=== PATIENT | female | born 1945 | race Caucasian/White ===

== ENCOUNTER 2016-02-13 13:22 | Inpatient (IN) ==
[2016-02-13] MEDS ORDERED: Ipratropium/Albuterol Neb 3 ML IH ONE (13:41)
--- NOTE | 2016-02-13 14:12 | Emergency Department Note ---
Disposition Clinical Impression: Hypoxia Asthma with exacerbation Qualifiers: Asthma severity: unspecified severity Qualified Code(s): J45.901 - Unspecified asthma with (acute) exacerbation Disposition: Admitted As Inpatient Condition: Fair Time of Disposition: 15:26 SOB HPI - General Chief Complaint: ED Shortness of Breath/Dyspnea Stated Complaint: cough/sob/taylor Source: patient Limitations: no limitations Nursing Notes Reviewed: Yes Vital Signs Reviewed: Yes - History of Present Illness Patient is a 70-year-old female who presents to [facility] ED with a chief complaint of difficulty breathing. States she has had cough and runny nose for the last 3 days. Past medical history significant for asthma for which she takes an inhaler. States she was wheezing quite a bit at home and decided to go to the urgent care to get checked out. They gave her a breathing treatment as well as Solu-Medrol while she was there. She was transferred here for further workup. On presentation to our emergency department, patient was saturating 88% on room air. She is not on any home oxygen. Pt Subjective Complaint: shortness of breath, cough Onset (ago): day(s) Context: recent illness Severity: moderate Consistency/Duration: gradually worsening Improves with: oxygen, rest Worsens with: exertion Known history of: asthma Associated symptoms: Reports: cough, wheezing. Denies: chest pain, fever Treatment prior to arrival: oxygen, bronchodilator Cough present: Yes Cough Description: Involuntary Cough Frequency: Intermittent Sputum production: No - Related Data Home oxygen amount: none Allergies Allergy/AdvReac Type Severity Reaction Status Date / Time Sulfa (Sulfonamide Allergy Mild Rash Verified 02/13/16 13:49 Antibiotics) All systems ED: reviewed and negative except as stated. Past Medical History - Past Medical History Attestation: Yes The following information was validated with the patient. Source: patient Medical history: Reports: asthma, cancer Psychiatric history: Reports: depression - Social History Smoking Status: Former smoker Alcohol use: Reports: heavy Drug use: Reports: none Physical Exam - General Limitations: no limitations General appearance: alert, in no apparent distress - Head Head exam: atraumatic, normocephalic, normal inspection - Eye Eye exam: Present: normal appearance, PERRL, EOMI - ENT ENT exam: normal exam, normal oropharynx, mucous membranes moist - Neck Neck exam: Present: normal inspection, full ROM, trachea midline - Chest Chest inspection: Present: normal inspection, symmetric chest wall rise - Respiratory Respiratory exam: Present: wheezes (LLB), other (decreased breath sounds bilaterally) - Cardiovascular Cardiovascular exam: Present: normal rhythm, tachycardia - Abdominal Exam Abdominal exam: Present: soft, Non-Tender. Absent: tenderness, distention, guarding, rebound, rigidity - Extremities Exam Extremities exam: Present: normal inspection, full ROM. Absent: tenderness, pedal edema - Back Exam Back exam: Present: normal inspection, full ROM. Absent: tenderness - Neurological Exam Neurological exam: Present: alert, oriented X3 - Psychiatric Psychiatric exam: Present: normal affect, normal mood - Skin Skin exam: Present: warm, dry, intact, normal color Course Course Narrative: Patient seen and examined. Difficulty breathing. Patient already is received 1 DuoNeb. We will order 2 more. She also received 125 mg of Solu-Medrol. Influenza testing was negative at urgent care. Patient oxygen saturation 88% on room air upon arrival. Cardiopulmonary workup initiated. - Reevaluation(s) Reevaluation #1: Lab work appears unremarkable. Lactic acid is slightly elevated at 2.3. Chest x-ray does not show any signs of pneumonia. Ambulatory test showed that patient dropped down to 84% on room air. We will admit to hospitalist for asthma exacerbation with hypoxia. I spoke with hospitalist Dr. Jeffrey who has accepted patient for admission. We will also order a CTA of the chest. I will pretreat with some IV fluids. Time: 15:18 Vital Signs Temperature 98.4 F 02/13/16 13:30 Pulse Rate 126 02/13/16 13:30 Respiratory Rate 18 02/13/16 13:30 Blood Pressure 127/76 02/13/16 13:30 O2 Sat by Pulse Oximetry 88 L 02/13/16 13:30 Temperature 98.4 F 02/13/16 13:30 Pulse Rate 131 02/13/16 15:14 Respiratory Rate 16 02/13/16 15:14 Blood Pressure 159/132 02/13/16 14:39 O2 Sat by Pulse Oximetry 98 02/13/16 15:14 Oxygen Delivery Oxygen Delivery Nasal Cannula Shortness of Breath/Dyspnea - Medical Records Medical records reviewed: Yes I reviewed the patient's medical records. - Lab Data Lab results reviewed: Yes I reviewed the patient's lab results. Result diagrams: 02/13/16 13:55 02/13/16 13:55 Lab Results 02/13/16 02/13/16 02/13/16 Range/Units 13:55 13:55 13:55 WBC 9.5 (4.3-11.1) K/mcL RBC 4.45 (3.82-4.97) M/mcL Hgb 14.1 (11.5-15.4) g/dL Hct 43.9 (35.3-44.9) % MCV 98.7 (83.0-100.0) fL MCH 31.7 (28.0-33.3) pg MCHC 32.1 (31.6-35.5) g/dL RDW 14.3 (11.5-14.5) % Plt Count 220 (140-400) K/mcL MPV 9.4 (9.4-12.4) fL Immature Gran % 0.2 (0-4) % Seg Neutrophils % 68.9 % Lymphocytes % 11.9 % Monocytes % 18.3 % Eosinophils % 0.3 % Basophils % 0.4 % Neutrophils # 6.6 (1.6-8.9) K/mcL Lymphocytes # 1.1 (0.6-4.6) K/mcL Monocytes # 1.7 H (0.0-1.3) K/mcL Eosinophils # 0.0 (0.0-0.6) K/mcL Basophils # 0.0 (0.0-0.2) K/mcL Reactive Lymphocytes Present A (Not Present) Platelet Estimate Normal (Normal) Sodium 139 (136-145) mEq/L Potassium 3.9 (3.5-4.5) mEq/L Chloride 102 (98-109) mEq/L Carbon Dioxide 23 (19-29) mEq/L BUN 9 (7-20) mg/dL Creatinine 0.73 (0.57-1.11) mg/dL Est GFR ( Amer) > 60 (> 60) Est GFR (Non-Af Amer) > 60 (> 60) BUN/Creatinine Ratio 12 (6-26) Glucose 140 H (70-99) mg/dL Calculated Osmolality 289 (280-300) Lactic Acid 2.3 H (0.5-2.2) mmol/L Calcium 9.4 (8.6-10.8) mg/dL Troponin I (0-0.03) ng/mL B-Natriuretic Peptide (0-100) pg/mL 02/13/16 02/13/16 Range/Units 13:55 13:55 WBC (4.3-11.1) K/mcL RBC (3.82-4.97) M/mcL Hgb (11.5-15.4) g/dL Hct (35.3-44.9) % MCV (83.0-100.0) fL MCH (28.0-33.3) pg MCHC (31.6-35.5) g/dL RDW (11.5-14.5) % Plt Count (140-400) K/mcL MPV (9.4-12.4) fL Immature Gran % (0-4) % Seg Neutrophils % % Lymphocytes % % Monocytes % % Eosinophils % % Basophils % % Neutrophils # (1.6-8.9) K/mcL Lymphocytes # (0.6-4.6) K/mcL Monocytes # (0.0-1.3) K/mcL Eosinophils # (0.0-0.6) K/mcL Basophils # (0.0-0.2) K/mcL Reactive Lymphocytes (Not Present) Platelet Estimate (Normal) Sodium (136-145) mEq/L Potassium (3.5-4.5) mEq/L Chloride (98-109) mEq/L Carbon Dioxide (19-29) mEq/L BUN (7-20) mg/dL Creatinine (0.57-1.11) mg/dL Est GFR ( Amer) (> 60) Est GFR (Non-Af Amer) (> 60) BUN/Creatinine Ratio (6-26) Glucose (70-99) mg/dL Calculated Osmolality (280-300) Lactic Acid (0.5-2.2) mmol/L Calcium (8.6-10.8) mg/dL Troponin I 0.01 (0-0.03) ng/mL B-Natriuretic Peptide 23 (0-100) pg/mL - Radiology Data Radiology results reviewed: Yes I reviewed the patient's radiology results. - EKG Data EKG attestation: Yes I reviewed and interpreted this EKG. EKG results narrative: EKG done at 1330 shows sinus tachycardia with a rate of 122 bpm. There is moderate ST depression in V3 through V6 and aVF. Attestation Statement - Attestation Attestation: Patient was seen with resident physician. I reviewed the history, physical, assessment and plan, and agree with the findings. I also personally evaluated this patient and had [id number] time with this patient. 70-year-old female who presents to the emergency department with worsening shortness of breath for last several weeks. Has a history of asthma and thinks this is probably an asthma exacerbation. She was seen in urgent care was given 2 breathing treatments but did not significantly improve and was hypoxic so she was sent to the emergency department for evaluation treatment. She also received steroid injection prior to her arrival. On examination patient is tachycardic heart is otherwise normal lungs are wheezing especially in the left side with decreased air movement. Abdomen is soft and nontender extremity is unremarkable. We will give additional breathing treatments and check a look for cardiac or pulmonary causes of her symptoms. She was hypoxic with a room air pulse ox of 88%. Unless this improves she will require hospitalization for oxygen therapy as she does not have home O2. After various breathing treatments were provided , with attempted ambulation patient oxygen level dropped to 84%. Case was discussed with the hospitalist. Although this is likely asthma related we will order a CT angiography of the chest just to rule out other causes of her shortness of breath and hypoxia. This will be obtained while in route to the floor and followed up on by the hospitalist physician. Agree with resident physician assessment and plan.
[2016-02-13 14:14] LABS: Basophils % 0.4 %; Eosinophils % 0.3 %; Hematocrit 43.9 % (35.3-44.9); Hemoglobin 14.1 g/dL (11.5-15.4); Immature Granulocytes % 0.2 % (0-4); Lymphocytes # 1.1 K/mcL (0.6-4.6); Lymphocytes % 11.9 %; Mean Corpuscular HGB Conc 32.1 g/dL (31.6-35.5); Mean Corpuscular Hemoglobin 31.7 pg (28.0-33.3); Mean Corpuscular Volume 98.7 fL (83.0-100.0); Mean Platelet Volume 9.4 fL (9.4-12.4); Monocytes # 1.7 K/mcL (0.0-1.3); Monocytes % 18.3 %; Platelet Count 220 K/mcL (140-400); Red Blood Count 4.45 M/mcL (3.82-4.97); Red Cell Distribution Width 14.3 % (11.5-14.5); Segmented Neutrophils % 68.9 %
[2016-02-13 14:23] LABS: Neutrophils # 6.6 K/mcL (1.6-8.9)
[2016-02-13 14:27] LABS: BUN/Creatinine Ratio 12 (6-26); Blood Urea Nitrogen 9 mg/dL (7-20); Calcium 9.4 mg/dL (8.6-10.8); Carbon Dioxide 23 mEq/L (19-29); Chloride 102 mEq/L (98-109); Glucose 140 mg/dL (70-99); Osmolality,Calculated 289 (280-300); Potassium 3.9 mEq/L (3.5-4.5); Sodium 139 mEq/L (136-145); eGFR For African Americans > 60 (> 60); eGFR For Non-African Americans > 60 (> 60)
[2016-02-13 14:45] LABS: Platelet Estimate Normal (Normal)
[2016-02-13 14:46] LABS: Reactive Lymphocytes Present (Not Present)
[2016-02-13] MEDS ORDERED: 0.9 % Sodium Chloride 1,000 ML IVC ONE (15:24)
[2016-02-13] MEDS ORDERED: Naloxone 0.4 MG/ML INJ IVP PRN (18:13)
[2016-02-13] MEDS ORDERED: Ondansetron 4 MG/2 ML VIAL IVP PRN (18:13)
[2016-02-13] MEDS ORDERED: Acetaminophen 325 MG TABLET PO PRN (18:13)
[2016-02-13] MEDS ORDERED: Albuterol 2.5 MG/3 ML NEBULIZER IH PRN (18:15)
--- NOTE | 2016-02-13 18:18 | Internal Med History&Physical ---
Date of Encounter: 02/13/16 Time of Encounter: 18:18 Assessment and Plan (1) Pneumonia Current visit: Yes Status: Acute Patient presents with cough, hypoxia and tachycardia. Chest CT shows right lower lobe infiltrate along with left upper lobe nodular densities, for which three-month follow-up is recommended as an outpatient. Start IV hydration and IV antibiotics for community-acquired pneumonia-Rocephin and azithromycin. When necessary supplemental oxygen. Qualifiers: Pneumonia type: due to unspecified organism Laterality: right Lung location: lower lobe of lung Qualified Code(s): J18.9 - Pneumonia, unspecified organism (2) Acute respiratory failure with hypoxia Current visit: Yes Status: Acute Likely related to underlying pneumonia and acute exacerbation of asthma. Continue supplemental oxygen along with scheduled bronchodilators and IV steroids. Patient will require home oxygen evaluation prior to discharge. (3) Sinus tachycardia Current visit: Yes Status: Acute Could be related to beta 2 agonist therapy and dehydration. Continue IV hydration and telemetry monitoring, trend troponins. Does not report any chest pain at this time. (4) Asthma with exacerbation Current visit: Yes Status: Acute Plan as above. Qualifiers: Asthma severity: mild intermittent Qualified Code(s): J45.21 - Mild intermittent asthma with (acute) exacerbation Internal Medicine - H&P: HPI Chief complaint: Shortness of breath Admitted From: Emergency Dept Plans for Post Hospital Care: Home History of present illness: Ms. Flores is a 70 year old female with history of asthma, presents with complaints of 5 day history of cough, congestion and shortness of breath. Patient was doing well until about 5-6 days back when she started having dry hacking cough associated with chest congestion, difficulty breathing, wheezing and chest tightness. No orthopnea, leg swelling, dizziness or syncope. She presented to urgent care yesterday and was discharged home on oral prednisone and azithromycin, however continued to have worsening symptoms and presented to the emergency room today. She is a nonsmoker and reports that her asthma is usually well controlled, no frequent flareups. Her symptoms are slightly improved currently with IV steroids and breathing treatments in the emergency room. Past Med Surg Social Fam HX - Past Medical History Medical history: asthma, cancer (Bladder cancer status post excision and BCG) Psychiatric history: anxiety, depression - Past Surgical History Surgical History: other (Right ankle ORIF, renal artery stent placement) - Social History Smoking Status: Former smoker Alcohol use: occasionally (2 glasses of wine per day), heavy Drug use: none Occupational status: retired Current living situation: Home - Independent Activity Level: Independent ambulation Recent Out of Country Travel Within the Last 8 Weeks: No Exposure or Possible Exposure to Illness During Travel: No - Family History Mother Hx Family Cardiac Disorders: Yes (CHF) Sister Hx Family Cancer: Yes (Breast cancer, lung cancer) Father Hx Family Cancer: Yes (Bladder cancer) Internal Medicine - H&P: Meds Aspirin [Lo-Dose Aspirin EC] 81 mg PO DAILY 02/13/16 [History] Budesonide/Formoterol 160/4.5 [Symbicort 160/4.5] 1 puff IH BIDR 02/13/16 [ History] Cyanocobalamin (Vitamin B-12) [Vitamin B-12] 5,000 mcg SL DAILY 02/13/16 [ History] Duloxetine [Cymbalta] 30 mg PO DAILY 02/13/16 [History] Gabapentin [Neurontin] 600 mg PO HS 02/13/16 [History] Multivit with Iron-Minerals [[employer]] 1 tab PO DAILY 02/13/16 [ History] Pravastatin Sodium [Pravachol] 40 mg PO DAILY 02/13/16 [History] Propranolol [Inderal] 40 mg PO DAILY 02/13/16 [History] Vitamin E Acetate [Vitamin E] 400 unit PO DAILY 02/13/16 [History] Allergies Sulfa (Sulfonamide Antibiotics) Allergy (Mild, Verified 02/13/16 13:49) Rash All Systems PM: A 10-system review of systems was performed and is negative for pertinent findings except as documented above in the HPI. - Constitutional Constitutional: malaise, no chills, no fever(s), no night sweats - EENT Eyes: no change in vision, no discharge, no pain, no photophobia Ears: no ear discharge, no ear pain, no tinnitus Nose, mouth and throat: no dysphagia, no nasal discharge, no neck pain, no sore throat - Cardiovascular Cardiovascular ROS IM: no chest pain, no diaphoresis, no dyspnea, no lightheadedness, no palpitations, no syncope - Respiratory Respiratory: cough, dyspnea, dyspnea on exertion, wheezing, chest congestion - Gastrointestinal Gastrointestinal: no abdominal pain, no diarrhea, no hematemesis, no hematochezia, no melena, no nausea, no vomiting - Genitourinary Genitourinary: no change in urinary stream, no dysuria, no flank pain, no hematuria - Musculoskeletal Musculoskeletal ROS IM: no numbness, no tingling - Integumentary Integumentary IM: no rash, no unusual bruising - Neurological Neurological ROS: no confusion, no convulsions, no focal weakness, no numbness, no tingling, no tremor(s) - Hematologic/Lymphatic Hematologic/Lymphatic: no easy bruising - Constitutional Vitals: Temp Pulse Resp BP Pulse Ox 98.3 F 138 19 162/78 94 L 02/13/16 16:32 02/13/16 16:32 02/13/16 16:32 02/13/16 16:32 02/13/16 16:32 General appearance: Present: mild distress, A&O X 3, obese, answers questions appropriately - Head Head exam: Present: atraumatic, normocephalic - Neck Neck exam general surgery: Present: supple, trachea midline. Absent: lymphadenopathy - Respiratory Respiratory exam: Present: wheezes (Intermittent end expiratory wheezing posteriorly bases). Absent: accessory muscle use, rales, rhonchi - Cardiovascular Cardiovascular exam: Present: RRR, +S1, +S2, tachycardia. Absent: diastolic murmur, gallop, rubs, systolic murmur - GI/Abdominal GI/Abdominal exam: Present: normal bowel sounds, soft (Obese and nontender), no peritoneal signs. Absent: distended, tenderness - Extremities Exam Extremities exam: Present: full ROM, warm, radial pulses palpable and symetrical. Absent: calf tenderness, cyanotic, pedal edema - Neurological Exam Neurological exam: Present: CN II-XII intact, oriented X3, no focal deficits. Absent: pronater drift, facial droop, speech deficit - Skin Skin exam: Present: dry, intact Internal Med - H&P Results - Labs CBC & Chem 7: 02/14/16 00:43 02/14/16 00:43 - EKG Data -: EKG Interpreted by Myself EKG shows normal: sinus rhythm Rate: tachycardia - EKG Data EKG comments: 02/14/16 19:04 Sinus tachycardia with [address] depression in lateral leads
[2016-02-13] MEDS: Levofloxacin 750 MG/150 ML 750 MG/150 ML BAG IVPB SCH (18:43)
[2016-02-13] MEDS: 0.9 % Sodium Chloride 1,000 ML IVC SCH (18:43)
[2016-02-13] MEDS: Ipratropium/Albuterol Neb 3 ML IH SCH ×2 (20:00→23:54)
[2016-02-13] MEDS: Ibuprofen 400 MG TABLET PO PRN (20:03)
[2016-02-13] MEDS: Gabapentin 300 MG CAPSULE PO SCH (20:03)
[2016-02-13] MEDS ORDERED: *HR* LORazepam 2 MG/ML VIAL IVP ONE (21:05)
[2016-02-13] MEDS: Budesonide/Formoterol 160/4.5 MDI IH SCH (22:43)
[2016-02-14 00:58] LABS: Basophils % 0.2 %; Hematocrit 42.7 % (35.3-44.9); Hemoglobin 13.4 g/dL (11.5-15.4); Immature Granulocytes % 0.6 % (0-4); Lymphocytes # 0.5 K/mcL (0.6-4.6); Lymphocytes % 8.3 %; Mean Corpuscular HGB Conc 31.4 g/dL (31.6-35.5); Mean Corpuscular Volume 98.8 fL (83.0-100.0); Mean Platelet Volume 9.2 fL (9.4-12.4); Monocytes # 0.4 K/mcL (0.0-1.3); Monocytes % 6.1 %; Neutrophils # 5.5 K/mcL (1.6-8.9); Platelet Count 236 K/mcL (140-400); Red Blood Count 4.32 M/mcL (3.82-4.97); Red Cell Distribution Width 14.1 % (11.5-14.5); Segmented Neutrophils % 84.8 %
[2016-02-14 01:06] LABS: BUN/Creatinine Ratio 14 (6-26); Blood Urea Nitrogen 11 mg/dL (7-20); Calcium 9.1 mg/dL (8.6-10.8); Carbon Dioxide 19 mEq/L (19-29); Chloride 104 mEq/L (98-109); Chol/HDL Ratio 2.2 (0-4.9); Cholesterol 192 mg/dL (< 200); Glucose 245 mg/dL (70-99); HDL Cholesterol 88 mg/dL (40-59); LDL Cholesterol,Calculated 90 mg/dL (0-99); Osmolality,Calculated 290 (280-300); Potassium 3.6 mEq/L (3.5-4.5); Sodium 136 mEq/L (136-145); Triglycerides 68 mg/dL (< 150); eGFR For African Americans > 60 (> 60); eGFR For Non-African Americans > 60 (> 60)
[2016-02-14] MEDS: Ipratropium/Albuterol Neb 3 ML IH SCH ×6 (04:46→23:11)
[2016-02-14] MEDS: *HR* Enoxaparin 40 MG/0.4 ML SYRINGE SQ SCH (06:06)
[2016-02-14] MEDS: Budesonide/Formoterol 160/4.5 MDI IH SCH ×2 (07:24→19:50)
[2016-02-14] MEDS: predniSONE 20 MG TABLET PO SCH (09:08)
[2016-02-14] MEDS: Multivit/Ca/Min/Fe/FA 1 TAB TABLET PO SCH (09:09)
[2016-02-14] MEDS: Levofloxacin 750 MG/150 ML 750 MG/150 ML BAG IVPB SCH (09:10)
[2016-02-14] MEDS: 0.9 % Sodium Chloride 1,000 ML IVC SCH (09:10)
[2016-02-14] MEDS: Aspirin Enteric Coated 81 MG Tablet PO SCH (09:10)
--- NOTE | 2016-02-14 10:41 | Internal Med Progress Note ---
Date of Encounter: 02/14/16 Time of Encounter: 10:39 - Assessment and plan (1) Asthma with exacerbation Status: Acute Assessment and plan: improving; continue bronchodilators, oral steroids and IV antibiotics; continue inhaled steroids; supplemental O2 PRN; Qualifiers: Asthma severity: mild intermittent Qualified Code(s): J45.21 - Mild intermittent asthma with (acute) exacerbation (2) Pneumonia Status: Acute Assessment and plan: continue IV Rocephin and Zithromax; supplemental O2 PRN; Qualifiers: Pneumonia type: due to unspecified organism Laterality: right Lung location: lower lobe of lung Qualified Code(s): J18.9 - Pneumonia, unspecified organism (3) Tachycardia Status: Acute Assessment and plan: continues to have intermittent sinus tachycardia; check thyroid profile and Echocardiogram; (4) Acute respiratory failure with hypoxia Status: Acute Assessment and plan: patient may need to be discharged on home o2; continues to require supplemental O2; (5) Sinus tachycardia Status: Resolved - Subjective Interval history: Feels a lot better; able to ambulate and took a shower this morning; continues to require 2L/min O2; has intermittent dry cough and wheezing, no chest pain, palpitations, dizziness; - Constitutional Vitals: Temp Pulse Resp BP Pulse Ox 97.8 F 131 15 159/79 97 02/14/16 07:37 02/14/16 07:37 02/14/16 07:37 02/14/16 07:37 02/14/16 09:10 General appearance: Present: A&O X 3, answers questions appropriately - Head Head exam: Present: atraumatic, normocephalic - Neck Neck exam general surgery: Present: supple, trachea midline. Absent: lymphadenopathy - Respiratory Respiratory exam: Present: CTAB. Absent: accessory muscle use, rales, rhonchi, wheezes - Cardiovascular Cardiovascular exam: Present: RRR, +S1, +S2. Absent: diastolic murmur, gallop, rubs, systolic murmur - GI/Abdominal GI/Abdominal exam: Present: normal bowel sounds, soft, no peritoneal signs. Absent: distended, tenderness - Extremities Exam Extremities exam: Present: pedal edema, warm, radial pulses palpable and symetrical. Absent: calf tenderness, cyanotic Internal Medicine: Result - Labs CBC & Chem 7: 02/14/16 00:43 02/14/16 00:43 Labs: Short CBC 02/14/16 Range/Units 00:43 WBC 6.5 (4.3-11.1) K/mcL Hgb 13.4 (11.5-15.4) g/dL Hct 42.7 (35.3-44.9) % Plt Count 236 (140-400) K/mcL Neutrophils # 5.5 (1.6-8.9) K/mcL BMP 02/14/16 00:43 Sodium 136 Potassium 3.6 Chloride 104 Carbon Dioxide 19 BUN 11 Creatinine 0.81 Glucose 245 H Calcium 9.1 Cardiac Enzymes 02/14/16 02/14/16 Range/Units 00:43 04:55 Troponin I 0.00 0.01 (0-0.03) ng/mL Consult Discharge Plan - Plan Instructions: Prednisone (By mouth), Omeprazole (By mouth), Levofloxacin (By mouth), Ipratropium/Albuterol (By breathing), Asthma (GEN), Community-acquired Pneumonia (DC) Referrals: Liz Nelson MD [Primary Care Provider] - 02/25/16 11:45 am Prescriptions: Ipratropium/Albuterol Neb [Duoneb] 3 ml IH [id number] PRN 30 Days PRN Reason: Shortness Of Breath/Wheezing Levofloxacin [Levaquin] 500 mg PO DAILY #7 tablet Nebulizer [Aeroeclipse] 1 each MC Q4H PRN 30 Days PRN Reason: Shortness Of Breath Nebulizer Accessories [Sootheneb [id number] Adult Mask] 1 each MC Q4H PRN 30 Days PRN Reason: Shortness Of Breath/Wheezing Omeprazole [PriLOSEC] 20 mg PO DAILY@0630 #30 capsule. PredniSONE 40 mg PO DAILY 8 Days
[2016-02-14 11:26] LABS: Thyroid Stimulating Hormone 0.578 mcIU/mL (0.350-4.840)
[2016-02-14] MEDS: Ibuprofen 400 MG TABLET PO PRN (14:46)
--- NOTE | 2016-02-14 14:50 | ECHO - Doppler Report ---
Echocardiogram Name: Deepthi Flores Date of Study: 02/14/2016 Date: 1945 Ht: 62.0 in Medical Record#: [id number] Age: 70 Wt: 197.0 lb Gender: Female BSA: 1.9 Order #: [id number] Location: [facility] Room #: 3B23 Reading Physician: Sydnee Kelley DO Data Entry Supervisor: Niharika George RVT Ordering Physician: Loly Jeffrey MD Primary Physician: Liz Nelson MD Indications: Tachycardia Impressions: LVEF 50-55%. Normal left ventricular size and systolic function. There is evidence of mild diastolic dysfunction of the left ventricle. Normal right ventricular size and function. No significant valvular dysfunction. Estimated RVSP was 22 mmHg. No pulmonary hypertension. Left Ventricular Wall Motion: Rest Echo Findings All wall segments showed normal motion. Findings: Study Quality * Technically adequate exam. ECG Findings * Normal sinus rhythm. Aortic Valve * No aortic regurgitation. * Aortic valve not well visualized. * No aortic stenosis. Mitral Valve * No mitral regurgitation. * Normal mitral valve structure. * No mitral stenosis. Tricuspid Valve * Tricuspid valve not well visualized. * Trace tricuspid regurgitation. * Estimated RA pressure is 3 mmHg. * Estimated RVSP is 22 mmHg. * No pulmonary hypertension. Pulmonic Valve * Pulmonic valve is not well visualized. * No pulmonic stenosis. * No pulmonic regurgitation. Pulmonary Artery * Pulmonary artery not well visualized. Left Ventricle * LVEF 50-55%. * Normal LV chamber size, wall thickness and function. * Mild left ventricular diastolic dysfunction. Right Ventricle * Normal right ventricular structure and function. Left Atrium * Normal left atrial size. Right Atrium * Normal right atrial size. Interatrial Septum * Lipomatous interatrial septum. * No evidence of PFO by color Doppler. IVC * Normal IVC dimensions and inspiratory collapse. Pericardium * There is no pericardial effusion present. Aorta * Normally sized aortic root. History Hypercholesteremia Myocardial Infarction Measurements: BP: 146/ 74 2D Normal Values IVSd: 1.00 cm 0.6 - 1.0 cm LVIDd: 3.50 cm 3.7 - 5.6 cm LVPWd: 1.00 cm 0.6 - 1.1 cm LVIDs: 2.90 cm 1.5 - 3.6 cm AO: 2.40 cm < 4.0 cm LA: 2.70 cm 2.0 - 4.0cm %FS: 17.10 cm >25 % LA volume: 25 Mitral Valve Peak E:.89 m/sec Peak A:.98 m/sec E/A Ratio:0.9 Tricuspid Valve TV Regurg Peak Grad: 19.00mmHg TV Regurg Peak Jhonny: 2.16m/sec Updated by Sydnee Kelley on 02/14/2016 2:45:21 PM electronically signed on 02/14/2016 2:46:01 PM with status of Final Wall Motion Tobias: 1=Normal, 2=Hypokinesis, 3=Akinesis, 4=Dyskinesis, 5=Aneurysmal, 6=Hyperkinetic, X=Not Visualized (Blank)=Missing
[2016-02-14] MEDS: Gabapentin 300 MG CAPSULE PO SCH (20:10)
[2016-02-14] MEDS ORDERED: *HR* LORazepam 0.5 MG TABLET PO PRN (22:42)
[2016-02-14] MEDS ORDERED: Melatonin 3 MG TABLET PO SCH (22:45)
[2016-02-15] MEDS: Ipratropium/Albuterol Neb 3 ML IH SCH ×4 (03:47→15:43)
[2016-02-15] MEDS: *HR* Enoxaparin 40 MG/0.4 ML SYRINGE SQ SCH (05:40)
[2016-02-15] MEDS: Budesonide/Formoterol 160/4.5 MDI IH SCH (07:59)
[2016-02-15] MEDS: Multivit/Ca/Min/Fe/FA 1 TAB TABLET PO SCH (10:49)
[2016-02-15] MEDS: Aspirin Enteric Coated 81 MG Tablet PO SCH (10:49)
[2016-02-15] MEDS: predniSONE 20 MG TABLET PO SCH (10:49)
[2016-02-15] MEDS: Levofloxacin 750 MG/150 ML 750 MG/150 ML BAG IVPB SCH (10:50)
--- NOTE | 2016-02-15 12:21 | Electrocardiograph Report ---
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
--- NOTE | 2016-02-15 13:37 | Discharge Summary ---
Date of Encounter: 02/15/16 Time of Encounter: 13:22 - Discharge Diagnosis (1) Asthma with exacerbation Priority: Primary Status: Acute Qualifiers: Asthma severity: mild intermittent Qualified Code(s): J45.21 - Mild intermittent asthma with (acute) exacerbation (2) Acute respiratory failure with hypoxia Priority: Primary Status: Resolved (3) Sinus tachycardia Priority: Primary Status: Resolved (4) Pneumonia Priority: Primary Status: Acute Qualifiers: Pneumonia type: due to unspecified organism Laterality: right Lung location: lower lobe of lung Qualified Code(s): J18.9 - Pneumonia, unspecified organism - Discharge Medications Prescriptions: Ipratropium/Albuterol Neb [Duoneb] 3 ml IH [id number] PRN 30 Days PRN Reason: Shortness Of Breath/Wheezing Levofloxacin [Levaquin] 500 mg PO DAILY #7 tablet Nebulizer [Aeroeclipse] 1 each MC Q4H PRN 30 Days PRN Reason: Shortness Of Breath Nebulizer Accessories [Sootheneb [id number] Adult Mask] 1 each MC Q4H PRN 30 Days PRN Reason: Shortness Of Breath/Wheezing Omeprazole [PriLOSEC] 20 mg PO DAILY@0630 #30 capsule. PredniSONE 40 mg PO DAILY 8 Days Home Medications: Aspirin [Lo-Dose Aspirin EC] 81 mg PO DAILY 02/13/16 [History] Budesonide/Formoterol 160/4.5 [Symbicort 160/4.5] 1 puff IH BIDR 02/13/16 [ History] Cyanocobalamin (Vitamin B-12) [Vitamin B-12] 5,000 mcg SL DAILY 02/13/16 [ History] Duloxetine [Cymbalta] 30 mg PO DAILY 02/13/16 [History] Gabapentin [Neurontin] 600 mg PO HS 02/13/16 [History] Multivit with [employer] [[employer]] 1 tab PO DAILY 02/13/16 [ History] Pravastatin Sodium [Pravachol] 40 mg PO DAILY 02/13/16 [History] Propranolol [Inderal] 40 mg PO DAILY 02/13/16 [History] Vitamin E Acetate [Vitamin E] 400 unit PO DAILY 02/13/16 [History] Ipratropium/Albuterol Neb [Duoneb] 3 ml IH [id number] PRN 30 Days 02/15/16 [Rx] Levofloxacin [Levaquin] 500 mg PO DAILY #7 tablet 02/15/16 [Rx] Nebulizer Accessories [Sootheneb [id number] Adult Mask] 1 each MC Q4H PRN 30 Days [Rx] Nebulizer [Aeroeclipse] 1 each MC Q4H PRN 30 Days 02/15/16 [Rx] Omeprazole [PriLOSEC] 20 mg PO DAILY@0630 #30 capsule. 02/15/16 [Rx] PredniSONE 40 mg PO DAILY 8 Days 02/15/16 [Rx] Allergies/Adverse Reactions: Allergies Sulfa (Sulfonamide Antibiotics) Allergy (Verified 02/15/16 10:49) Rash Procedures/tests Complete & Pending: Procedures Performed prior 72 hours Category Date Time Status EV echocardiogram Routine Y 02/14/16 10:30 Completed Date of admission: 02/13/16 22:34 Primary care physician: Liz Mccollum Discharging clinician: Trisha Jeffrey Anticipated date of discharge: 02/15/16 - Patient Status Disposition: Home, Self-Care Condition: Fair Functional capacity at discharge: independent ambulation Overall status at discharge: patient is progressing back to baseline - Discharge Instructions Follow Up With: Liz Nelson MD [Primary Care Provider] - 02/25/16 11:45 am - Diet and Activity Activity: resume usual activities as tolerated Diet: low fat, low cholesterol, low salt diet Hospital course: Ms. Flores is a 70 year old female with h/o- mild asthma presents with worsening dyspnea, cough and weakness. She failed outpatient therapy for asthma exacerbation and bronchitis. Initial labs showed no acute abnormality. CTA chest showed evidence of right lower lobe Pneumonia and nodules in left upper lobe. SHe was started on IV hydration along with IV antibiotics and steroids; she was also treated with supplemental O2, bronchodilators and inhaled steroids and had significant improvement. She is breathing better today with no active wheezing and is medically stable for discharge. She received 6-minute walk test and noted to require 2L/min O2 via NC PRN, and would benefit from portable home O2; patient is noted to be ambulatory at home. Patient had sinus tachycardia since admission; 2D Echocardiogram showed no acute abnormality except mild LV diastolic dysfunction; Thyroid profile was within normal limits. She likely had tachycardia due to beta-agonist therapy and underlying infection. - Time Spent with Patient Total time spent providing and/or coordinating discharge services: Greater than 30 minutes (50 min) - Constitutional Vitals: Temp Pulse Resp BP Pulse Ox 97.8 F 80 16 136/73 91 L 02/15/16 12:18 02/15/16 12:18 02/15/16 12:18 02/15/16 12:18 02/15/16 12:18 General appearance: Present: A&O X 3, obese, answers questions appropriately - Respiratory Respiratory exam: Present: CTAB. Absent: accessory muscle use, rales, rhonchi, wheezes - Cardiovascular Cardiovascular exam: Present: RRR, +S1, +S2. Absent: diastolic murmur, gallop, rubs, systolic murmur
[2016-02-15 16:02] VITALS: BP 122/72
== END 2016-02-15 17:00 | disposition home or self-care (01) | DRG 193 ==
LOC: EMEROO 13:22 → 3BNU 13:22 → MERGE 22:34
PROVIDERS: ADMIT Internal Medicine; ATTEND Internal Medicine

== ENCOUNTER 2019-05-24 13:19 | Inpatient (IN) ==
[2019-05-24] MEDS ORDERED: 0.9 % Sodium Chloride 1,000 ML IVC ONE (14:36)
[2019-05-24 14:50] LABS: Hematocrit 46.8 % (35.3-44.9); Hemoglobin 15.1 g/dL (11.5-15.4); Mean Corpuscular HGB Conc 32.3 g/dL (31.6-35.5); Mean Corpuscular Hemoglobin 31.3 pg (28.0-33.3); Mean Corpuscular Volume 96.9 fL (83.0-100.0); Mean Platelet Volume 9.4 fL (9.4-12.4); Platelet Count 125 K/mcL (140-400); Red Blood Count 4.83 M/mcL (3.82-4.97); White Blood Count 5.3 K/mcL (4.3-11.1)
[2019-05-24 15:06] LABS: BUN/Creatinine Ratio 21 (6-26); Blood Urea Nitrogen 13 mg/dL (8-23); Calcium 9.1 mg/dL (8.6-10.3); Carbon Dioxide 24 mEq/L (23-29); Chloride 95 mEq/L (98-107); Glucose 161 mg/dL (70-105); Osmolality,Calculated 272 (280-300); Sodium 129 mEq/L (136-145); eGFR For African Americans > 60 (> 60); eGFR For Non-African Americans > 60 (> 60)
[2019-05-24] MEDS ORDERED: Isovue-370 500 ML BOTTLE IVP ONE (15:25)
[2019-05-24] MEDS ORDERED: Azithromycin 500 MG in D5% in Water 250 ML IVPB ONE (16:28)
[2019-05-24] MEDS ORDERED: cefTRIAXone 1,000 MG in Water for inj. (sterile) 10 ML IVP ONE (16:28)
[2019-05-24] MEDS ORDERED: Naloxone 0.4 MG/ML INJ IVP PRN (17:11)
[2019-05-24] MEDS ORDERED: Ondansetron 4 MG/2 ML VIAL IVP PRN (17:11)
[2019-05-24 17:27] LABS: Bilirubin,Urine Negative (Negative); Blood,Urine Trace (Negative); Clarity,Urine Cloudy (Clear); Color,Urine Yellow (Yellow); Glucose,Urine (UA) Normal (Normal); Ketones,Urine 40 mg/dL (Negative); Leukocyte Esterase,Urine Negative (Negative); Nitrite,Urine Negative (Negative); Protein,Urine 100 mg/dL (Neg-Trace); Specific Gravity,Urine > 1.030 (1.010-1.025); Urobilinogen,Urine Normal (Normal)
[2019-05-24 17:30] LABS: Bacteria,Urine None Seen per hpf (None-Few); Hyaline Casts,Urine Few per lpf (None-Few); Squamous Epithelial Cell,Urine Many per lpf (None-Few)
[2019-05-24 17:53] LABS: Calcium Oxalate Crystals,Urine Present
[2019-05-24] MEDS: *HR* Heparin 5,000 UNIT/ML VIAL SQ SCH (18:53)
[2019-05-24] MEDS: 0.9 % Sodium Chloride 1,000 ML IVC SCH (18:53)
[2019-05-24] MEDS: Acetaminophen 325 MG TABLET PO PRN (23:43)
[2019-05-25 04:27] LABS: Basophils % 0.2 %; Hematocrit 42.8 % (35.3-44.9); Immature Granulocytes % 0.4 % (0-4); Lymphocytes # 0.1 K/mcL (0.6-4.6); Lymphocytes % 2.2 %; Mean Corpuscular HGB Conc 31.3 g/dL (31.6-35.5); Mean Corpuscular Hemoglobin 31.4 pg (28.0-33.3); Mean Corpuscular Volume 100.2 fL (83.0-100.0); Mean Platelet Volume 9.4 fL (9.4-12.4); Monocytes # 0.3 K/mcL (0.0-1.3); Monocytes % 5.9 %; Neutrophils # 4.5 K/mcL (1.6-8.9); Platelet Count 101 K/mcL (140-400); Red Blood Count 4.27 M/mcL (3.82-4.97); Red Cell Distribution Width 13.2 % (11.5-14.5); Segmented Neutrophils % 91.3 %; White Blood Count 4.9 K/mcL (4.3-11.1)
[2019-05-25 04:30] LABS: Hemoglobin 13.4 g/dL (11.5-15.4)
[2019-05-25 04:46] LABS: BUN/Creatinine Ratio 19 (6-26); Blood Urea Nitrogen 13 mg/dL (8-23); Calcium 8.4 mg/dL (8.6-10.3); Carbon Dioxide 27 mEq/L (23-29); Chloride 97 mEq/L (98-107); Glucose 135 mg/dL (70-105); Osmolality,Calculated 276 (280-300); Potassium 3.8 mEq/L (3.5-5.1); Sodium 132 mEq/L (136-145); eGFR For African Americans > 60 (> 60); eGFR For Non-African Americans > 60 (> 60)
[2019-05-25] MEDS: *HR* Heparin 5,000 UNIT/ML VIAL SQ SCH ×2 (05:06→17:46)
[2019-05-25] MEDS: Acetaminophen 325 MG TABLET PO PRN ×2 (07:50→16:10)
[2019-05-25] MEDS: 0.9 % Sodium Chloride 1,000 ML IVC SCH (10:42)
[2019-05-25] MEDS ORDERED: cefTRIAXone 1,000 MG in Water for inj. (sterile) 20 ML IVP ONE (16:00)
[2019-05-25] MEDS: Azithromycin 500 MG in 0.9 % Sodium Chloride 250 ML IVPB SCH (16:10)
[2019-05-25] MEDS ORDERED: 0.9 % Sodium Chloride 1,000 ML IVC ONE (16:46)
[2019-05-25] MEDS ORDERED: Ketorolac 15 MG/ML VIAL IVP ONE (16:48)
[2019-05-25] MEDS ORDERED: Vancomycin 0 MG in 0.9 % Sodium Chloride 250 ML IVPB SCH (17:00)
[2019-05-25] MEDS: Piperacillin/Tazobactam 3.375 GM in 0.9 % Sodium Chloride Mini Bag 100 ML IVPB SCH ×2 (17:56→23:28)
[2019-05-25] MEDS: Gabapentin 300 MG CAPSULE PO SCH (20:14)
[2019-05-26] MEDS: Acetaminophen 325 MG TABLET PO PRN ×2 (00:04→08:43)
[2019-05-26 03:58] LABS: Immature Granulocytes % 0.9 % (0-4); Mean Corpuscular Volume 100.7 fL (83.0-100.0); Red Cell Distribution Width 13.3 % (11.5-14.5)
[2019-05-26 04:00] LABS: Basophils % 0.6 %; Hematocrit 41.1 % (35.3-44.9); Immature Platelets 3.7 % (1.1-6.1); Lymphocytes # 0.2 K/mcL (0.6-4.6); Lymphocytes % 6.1 %; Mean Corpuscular HGB Conc 31.6 g/dL (31.6-35.5); Mean Corpuscular Hemoglobin 31.9 pg (28.0-33.3); Mean Platelet Volume 10.1 fL (9.4-12.4); Monocytes # 0.2 K/mcL (0.0-1.3); Monocytes % 5.2 %; Red Blood Count 4.08 M/mcL (3.82-4.97); Segmented Neutrophils % 87.2 %; White Blood Count 3.4 K/mcL (4.3-11.1)
[2019-05-26 04:17] LABS: BUN/Creatinine Ratio 22 (6-26); Blood Urea Nitrogen 13 mg/dL (8-23); Calcium 8.3 mg/dL (8.6-10.3); Carbon Dioxide 23 mEq/L (23-29); Chloride 100 mEq/L (98-107); Glucose 109 mg/dL (70-105); Osmolality,Calculated 275 (280-300); Potassium 4.1 mEq/L (3.5-5.1); Sodium 132 mEq/L (136-145); eGFR For African Americans > 60 (> 60); eGFR For Non-African Americans > 60 (> 60)
[2019-05-26 04:31] LABS: Platelet Count 68 K/mcL (140-400); Platelet Estimate Decreased (Normal)
[2019-05-26] MEDS: *HR* Heparin 5,000 UNIT/ML VIAL SQ SCH (05:04)
[2019-05-26] MEDS ORDERED: Aminoglycoside Consult 1 EACH MC ONE (08:07)
[2019-05-26] MEDS: Piperacillin/Tazobactam 3.375 GM in 0.9 % Sodium Chloride Mini Bag 100 ML IVPB SCH ×3 (08:13→23:35)
[2019-05-26] MEDS ORDERED: *HR* Metoprolol 5 MG/5 ML VIAL IVP ONE ×2 (09:49→10:01)
[2019-05-26] MEDS ORDERED: Furosemide 20 MG/2 ML VIAL IVP ONE (09:50)
[2019-05-26] MEDS ORDERED: Ketorolac 30 MG/ML VIAL IM ONE (10:19)
[2019-05-26] MEDS ORDERED: Ketorolac 15 MG/ML VIAL IVP ONE (10:20)
[2019-05-26] MEDS ORDERED: Acetaminophen/Aspirin/Caffeine TABLET PO ONE (10:52)
[2019-05-26] MEDS: Aspirin Enteric Coated 81 MG Tablet PO SCH (10:53)
[2019-05-26] MEDS: Tiotropium 18 MCG inhalation IH SCH (11:25)
[2019-05-26] MEDS: Cyanocobalamin (B-12) 1,000 MCG TABLET PO SCH (12:13)
[2019-05-26] MEDS: Azithromycin 500 MG in 0.9 % Sodium Chloride 250 ML IVPB SCH (15:35)
[2019-05-26] MEDS: Metoprolol XL (24 HR) Succ 25 MG TAB.ER.24H PO SCH (16:36)
[2019-05-26 16:41] LABS: C-Reactive Protein 134 mg/L (Less than 10); Ferritin > 1500 ng/mL (10-120); Lactate Dehydrogenase 556 Units/L (140-271)
[2019-05-26] MEDS ORDERED: Isovue-370 500 ML BOTTLE IVP ONE (17:16)
[2019-05-26] MEDS ORDERED: *HR* FentaNYL (PF) 100 MCG/2 ML VIAL IVP ONE (17:44)
[2019-05-26 17:45] LABS: BUN/Creatinine Ratio 19 (6-26); Blood Urea Nitrogen 18 mg/dL (8-23); Calcium 8.4 mg/dL (8.6-10.3); Carbon Dioxide 20 mEq/L (23-29); Chloride 100 mEq/L (98-107); Glucose 167 mg/dL (70-105); Osmolality,Calculated 282 (280-300); Potassium 3.9 mEq/L (3.5-5.1); Sodium 133 mEq/L (136-145); eGFR For African Americans > 60 (> 60); eGFR For Non-African Americans 56 (> 60)
[2019-05-26 19:52] LABS: Mean Corpuscular Volume 100.7 fL (83.0-100.0); Red Cell Distribution Width 13.4 % (11.5-14.5)
[2019-05-26 19:53] LABS: Basophils % 0.7 %; Eosinophils % 0.2 %; Hematocrit 42.2 % (35.3-44.9); Hemoglobin 13.3 g/dL (11.5-15.4); Immature Platelets 5.2 % (1.1-6.1); Lymphocytes # 0.2 K/mcL (0.6-4.6); Mean Corpuscular HGB Conc 31.5 g/dL (31.6-35.5); Mean Corpuscular Hemoglobin 31.7 pg (28.0-33.3); Mean Platelet Volume 11.9 fL (9.4-12.4); Monocytes # 0.2 K/mcL (0.0-1.3); Monocytes % 3.8 %; Neutrophils # 5.2 K/mcL (1.6-8.9); Red Blood Count 4.19 M/mcL (3.82-4.97); Segmented Neutrophils % 90.3 %; White Blood Count 5.8 K/mcL (4.3-11.1)
[2019-05-26 19:55] LABS: Platelet Count 48 K/mcL (140-400)
[2019-05-26 20:21] LABS: INR 1.3; Prothrombin Time 14.3 Seconds (9.4-12.1)
[2019-05-26 20:23] LABS: Activated Partial Thrombo Time 31.5 Seconds (26.0-36.0)
[2019-05-26] MEDS ORDERED: Acetaminophen IV 500 MG/50 ML INFUS..BTL IVPB ONE (20:29)
[2019-05-26 20:30] LABS: Platelet Estimate Decreased (Normal); Toxic Granulation Present (Not Present); Toxic Vacuolation Present (Not Present)
[2019-05-26] MEDS: Gabapentin 300 MG CAPSULE PO SCH (20:54)
[2019-05-27 02:42] LABS: BUN/Creatinine Ratio 22 (6-26); Blood Urea Nitrogen 19 mg/dL (8-23); Calcium 8.2 mg/dL (8.6-10.3); Carbon Dioxide 24 mEq/L (23-29); Chloride 102 mEq/L (98-107); Glucose 129 mg/dL (70-105); Osmolality,Calculated 282 (280-300); Sodium 134 mEq/L (136-145); eGFR For African Americans > 60 (> 60); eGFR For Non-African Americans > 60 (> 60)
[2019-05-27 02:49] LABS: Mean Platelet Volume 11.3 fL (9.4-12.4)
[2019-05-27 02:51] LABS: Hemoglobin 12.7 g/dL (11.5-15.4); Immature Platelets 5.9 % (1.1-6.1); Mean Corpuscular HGB Conc 31.8 g/dL (31.6-35.5); Mean Corpuscular Hemoglobin 31.7 pg (28.0-33.3); Mean Corpuscular Volume 99.8 fL (83.0-100.0); Red Blood Count 4.01 M/mcL (3.82-4.97); Red Cell Distribution Width 13.4 % (11.5-14.5); White Blood Count 4.8 K/mcL (4.3-11.1)
[2019-05-27 02:53] LABS: Platelet Count 48 K/mcL (140-400)
[2019-05-27 03:21] LABS: Platelet Estimate Decreased (Normal)
[2019-05-27 03:23] LABS: Lymphocytes # 0.2 K/mcL (0.6-4.6); Monocytes # 0.1 K/mcL (0.0-1.3); Neutrophils # 4.4 K/mcL (1.6-8.9)
[2019-05-27] MEDS: Tiotropium 18 MCG inhalation IH SCH (07:28)
[2019-05-27] MEDS: Metoprolol XL (24 HR) Succ 25 MG TAB.ER.24H PO SCH (07:50)
[2019-05-27] MEDS: Piperacillin/Tazobactam 3.375 GM in 0.9 % Sodium Chloride Mini Bag 100 ML IVPB SCH ×2 (07:51→16:41)
[2019-05-27] MEDS: Cyanocobalamin (B-12) 1,000 MCG TABLET PO SCH (08:04)
[2019-05-27] MEDS ORDERED: *HR* Promethazine 25 MG/ML VIAL IVP ONE (09:35)
[2019-05-27] MEDS ORDERED: methylPREDNISolone 125 MG/2 ML VIAL IVP ONE (09:35)
[2019-05-27] MEDS: Acetaminophen 325 MG TABLET PO PRN (11:48)
[2019-05-27] MEDS: 0.9 % Sodium Chloride 1,000 ML IVC SCH (12:32)
[2019-05-27] MEDS ORDERED: Ketorolac 15 MG/ML VIAL IVP ONE (13:38)
[2019-05-27] MEDS ORDERED: 0.9 % Sodium Chloride 250 ML IVC ONE (15:24)
[2019-05-27] MEDS ORDERED: 0.9 % Sodium Chloride 1,000 ML IVC ONE (15:37)
[2019-05-27] MEDS: Ipratropium/Albuterol Neb 3 ML IH SCH ×3 (16:19→22:56)
[2019-05-27] MEDS ORDERED: 0.9 % Sodium Chloride 250 ML ONE (16:21)
[2019-05-27] MEDS: Azithromycin 500 MG in 0.9 % Sodium Chloride 250 ML IVPB SCH (16:34)
[2019-05-27] MEDS: Aspirin Enteric Coated 81 MG Tablet PO SCH (20:14)
[2019-05-27] MEDS: Gabapentin 300 MG CAPSULE PO SCH (21:02)
[2019-05-28] MEDS: Piperacillin/Tazobactam 3.375 GM in 0.9 % Sodium Chloride Mini Bag 100 ML IVPB SCH (01:03)
[2019-05-28 01:09] LABS: Hemoglobin 11.8 g/dL (11.5-15.4); Red Cell Distribution Width 13.5 % (11.5-14.5)
[2019-05-28 01:11] LABS: Basophils % 0.5 %; Hematocrit 36.3 % (35.3-44.9); Immature Granulocytes % 0.7 % (0-4); Lymphocytes # 0.5 K/mcL (0.6-4.6); Lymphocytes % 6.4 %; Mean Corpuscular HGB Conc 32.5 g/dL (31.6-35.5); Mean Corpuscular Hemoglobin 32.4 pg (28.0-33.3); Mean Corpuscular Volume 99.7 fL (83.0-100.0); Mean Platelet Volume 11.1 fL (9.4-12.4); Monocytes # 0.3 K/mcL (0.0-1.3); Monocytes % 3.4 %; Red Blood Count 3.64 M/mcL (3.82-4.97); White Blood Count 7.7 K/mcL (4.3-11.1)
[2019-05-28 01:23] LABS: Neutrophils # 6.9 K/mcL (1.6-8.9); Platelet Count 44 K/mcL (140-400)
[2019-05-28 01:34] LABS: BUN/Creatinine Ratio 30 (6-26); Blood Urea Nitrogen 32 mg/dL (8-23); Calcium 8.1 mg/dL (8.6-10.3); Carbon Dioxide 22 mEq/L (23-29); Chloride 103 mEq/L (98-107); Glucose 212 mg/dL (70-105); Osmolality,Calculated 289 (280-300); Potassium 3.8 mEq/L (3.5-5.1); Sodium 133 mEq/L (136-145); eGFR For African Americans > 60 (> 60); eGFR For Non-African Americans 51 (> 60)
[2019-05-28 02:03] LABS: Platelet Estimate Decreased (Normal); Toxic Granulation Present (Not Present); Toxic Vacuolation Present (Not Present)
[2019-05-28] MEDS: Ipratropium/Albuterol Neb 3 ML IH SCH ×2 (03:52→07:40)
[2019-05-28] MEDS ORDERED: Piperacillin/Tazobactam 3.375 GM in 0.9 % Sodium Chloride Mini Bag 100 ML IVPB SCH (04:00)
[2019-05-28] MEDS: 0.9 % Sodium Chloride 1,000 ML IVC SCH (07:51)
[2019-05-28] MEDS: Metoprolol XL (24 HR) Succ 25 MG TAB.ER.24H PO SCH (08:07)
[2019-05-28] MEDS: Acetaminophen 325 MG TABLET PO PRN (08:07)
[2019-05-28] MEDS: Cyanocobalamin (B-12) 1,000 MCG TABLET PO SCH (08:07)
[2019-05-28 09:20] LABS: Albumin 2.8 g/dL (3.5-5.7); Albumin/Globulin Ratio 1.1 (1.1-2.2); Bilirubin,Direct 0.5 mg/dL (0.0-0.2); Bilirubin,Indirect 0.4 mg/dL (0.0-1.0); Bilirubin,Total 0.9 mg/dL (0.3-1.0); Globulin 2.5 g/dL (2.4-3.5); Total Protein 5.3 g/dL (6.4-8.9)
[2019-05-28] MEDS ORDERED: Meropenem 1,000 MG in Water for inj. (sterile) 20 ML IVP SCH ×2 (10:00→16:00)
[2019-05-28] MEDS ORDERED: Furosemide 20 MG/2 ML VIAL IVP SCH (10:00)
[2019-05-28 10:32] LABS: C-Reactive Protein 120 mg/L (Less than 10); Ferritin > 1500 ng/mL (10-120); Lactate Dehydrogenase 537 Units/L (140-271)
[2019-05-28] MEDS: Tiotropium 18 MCG inhalation IH SCH (10:32)
[2019-05-28 11:24] LABS: ABG Base Excess -1 mEq/L (-2 to 3); ABG HCO3 24 mEq/L (21-27); ABG Oxygen Saturation 99 % (95-98); ABG PCO2 40 mmHg (35-45); ABG PH 7.39 pH Units (7.32-7.45); ABG PO2 118 mmHg (85-104); ABG TCO2 26 mEq/L (20-26)
[2019-05-28] MEDS: Budesonide/Formoterol 160/4.5 1 PUFF INH IH SCH ×2 (11:25→20:13)
[2019-05-28] MEDS: Ipratropium 1 PUFF INHALER IH SCH ×4 (11:25→22:46)
[2019-05-28] MEDS ORDERED: Acetaminophen IV 1,000 MG/100 ML INFUS..BTL IVPB ONE (12:00)
[2019-05-28] MEDS: methylPREDNISolone 125 MG/2 ML VIAL IVP SCH ×2 (12:51→22:26)
[2019-05-28 15:37] LABS: Adenovirus Not Detected (Not Detect); Bordetella Pertussis Not Detected (Not Detect); Chlamydophila pneumoniae Not Detected (Not Detect); Coronavirus 229E Not Detected (Not Detect); Coronavirus HKU1 Not Detected (Not Detect); Coronavirus NL63 Not Detected (Not Detect); Coronavirus OC43 Not Detected (Not Detect); Human Metapneumovirus Not Detected (Not Detect); Human Rhinovirus/Enterovirus Not Detected (Not Detect); Influenza A Subtype 2009 H1 Not Detected (Not Detect); Influenza B Not Detected (Not Detect); Mycoplasma pneumoniae Not Detected (Not Detect); Parainfluenza Virus 1 Not Detected (Not Detect); Parainfluenza Virus 2 Not Detected (Not Detect); Parainfluenza Virus 3 Not Detected (Not Detect); Parainfluenza Virus 4 Not Detected (Not Detect); Respiratory Syncytial Virus Not Detected (Not Detect)
[2019-05-28 16:06] LABS: Bacteria,Urine None Seen per hpf (None-Few); Bilirubin,Urine Negative (Negative); Blood,Urine Moderate (Negative); Clarity,Urine Cloudy (Clear); Color,Urine Yellow (Yellow); Glucose,Urine (UA) Normal (Normal); Ketones,Urine Negative (Negative); Leukocyte Esterase,Urine Negative (Negative); Nitrite,Urine Negative (Negative); Protein,Urine 30 mg/dL (Neg-Trace); Specific Gravity,Urine 1.022 (1.010-1.025); Squamous Epithelial Cell,Urine Many per lpf (None-Few); Urobilinogen,Urine Normal (Normal); WBC,Urine 15-30 per hpf (0-3)
[2019-05-28 16:46] LABS: RBC,Urine 15-30 per hpf (0-3)
[2019-05-28] MEDS: Meropenem 1,000 MG in Water for inj. (sterile) 20 ML IVP SCH (17:27)
[2019-05-28] MEDS: Aspirin Enteric Coated 81 MG Tablet PO SCH (19:05)
[2019-05-28] MEDS: Gabapentin 300 MG CAPSULE PO SCH (22:27)
[2019-05-29] MEDS ORDERED: Acetaminophen IV 1,000 MG/100 ML INFUS..BTL IVPB ONE ×2 (00:55→14:51)
[2019-05-29] MEDS: 0.9 % Sodium Chloride 1,000 ML IVC SCH (01:29)
[2019-05-29] MEDS: Meropenem 1,000 MG in Water for inj. (sterile) 20 ML IVP SCH ×2 (01:31→10:16)
[2019-05-29] MEDS: Ipratropium 1 PUFF INHALER IH SCH ×4 (03:49→15:28)
[2019-05-29 05:31] LABS: Hemoglobin 11.6 g/dL (11.5-15.4); Immature Platelets 10.7 % (1.1-6.1); Mean Corpuscular HGB Conc 33.1 g/dL (31.6-35.5); Mean Corpuscular Volume 96.7 fL (83.0-100.0); Mean Platelet Volume 12.4 fL (9.4-12.4); Red Blood Count 3.62 M/mcL (3.82-4.97); Red Cell Distribution Width 13.8 % (11.5-14.5); White Blood Count 9.6 K/mcL (4.3-11.1)
[2019-05-29 05:34] LABS: Platelet Count 29 K/mcL (140-400)
[2019-05-29 05:49] LABS: Alanine Aminotransferase 71 Units/L (7-52); Albumin 2.4 g/dL (3.5-5.7); Alkaline Phosphatase 133 Units/L (34-104); Aspartate Amino Transferase 147 Units/L (13-39); BUN/Creatinine Ratio 48 (6-26); Bilirubin,Total 0.8 mg/dL (0.3-1.0); Blood Urea Nitrogen 43 mg/dL (8-23); Calcium 8.3 mg/dL (8.6-10.3); Carbon Dioxide 22 mEq/L (23-29); Chloride 106 mEq/L (98-107); Globulin 2.5 g/dL (2.4-3.5); Glucose 182 mg/dL (70-105); Osmolality,Calculated 297 (280-300); Potassium 3.7 mEq/L (3.5-5.1); Sodium 136 mEq/L (136-145); Total Protein 4.9 g/dL (6.4-8.9); eGFR For African Americans > 60 (> 60); eGFR For Non-African Americans > 60 (> 60)
[2019-05-29 06:02] LABS: Lymphocytes # 0.6 K/mcL (0.6-4.6); Monocytes # 0.4 K/mcL (0.0-1.3); Neutrophils # 8.5 K/mcL (1.6-8.9); Platelet Estimate Marked Decrease (Normal)
[2019-05-29] MEDS: Budesonide/Formoterol 160/4.5 1 PUFF INH IH SCH (08:56)
[2019-05-29] MEDS ORDERED: Metoprolol XL (24 HR) Succ 25 MG TAB.ER.24H PO SCH (09:00)
[2019-05-29] MEDS ORDERED: methylPREDNISolone 125 MG/2 ML VIAL IVP SCH (09:00)
[2019-05-29] MEDS: Cyanocobalamin (B-12) 1,000 MCG TABLET PO SCH (09:17)
[2019-05-29] MEDS ORDERED: *HR* Promethazine 25 MG/ML VIAL IVP PRN (09:37)
[2019-05-29] MEDS: Acetaminophen 325 MG TABLET PO PRN (11:33)
[2019-05-29] MEDS ORDERED: Acyclovir 700 MG in D5% in Water 250 ML IVPB SCH (13:00)
[2019-05-29] MEDS ORDERED: D5% in 0.9% NACL w KCl 20 MEQ/1,000 ML MLS IVC SCH (13:00)
[2019-05-29 13:59] LABS: Immature Reticulocyte % 6.4 % (11.0-38.0); Retculocyte # 0.02 M/mcL (0.05-0.10); Reticulocyte % 0.4 % (1.6-2.8)
[2019-05-29 14:13] LABS: Amylase 72 Units/L (29-103); C-Reactive Protein 84 mg/L (Less than 10); Lactate Dehydrogenase 767 Units/L (140-271); Lipase 43 Units/L (11-82)
[2019-05-29 14:32] LABS: Ferritin > 1500 ng/mL (10-120)
[2019-05-29 15:25] LABS: ABG Base Excess 0 mEq/L (-2 to 3); ABG HCO3 24 mEq/L (21-27); ABG Oxygen Saturation 96 % (95-98); ABG PCO2 35 mmHg (35-45); ABG PH 7.44 pH Units (7.32-7.45); ABG PO2 78 mmHg (85-104); ABG TCO2 25 mEq/L (20-26)
[2019-05-29 17:24] VITALS: BP 103/48
[2019-05-29] MEDS ORDERED: Doxycycline 100 MG in 0.9 % Sodium Chloride Mini Bag 100 ML IVPB SCH (18:00)
[2019-05-29] MEDS ORDERED: 0.9 % Sodium Chloride 1,000 ML ONE (18:23)
[2019-05-29] MEDS ORDERED: Norepinephrine 4 MG in 0.9 % Sodium Chloride 250 ML IVC SCH (18:30)
[2019-05-29] MEDS ORDERED: Aminoglycoside Consult 1 EACH MC ONE (19:15)
[2019-05-29] MEDS ORDERED: *HR* Midazolam HCl 5 MG/5 ML VIAL IVP ONE (19:15)
[2019-05-29] MEDS ORDERED: *HR* Etomidate 20 MG/10 ML AMPUL IVP ONE (19:15)
[2019-05-31 13:46] LABS: ANA IgG by ELISA NONE DETECTED (None Detected)
[2019-06-01 09:26] LABS: Mycoplasma pneumoniae IgG 0.13 U/L (<=0.09)
== END 2019-05-29 19:16 | disposition short-term general hospital (02) | DRG 871 ==
LOC: 2NENU 13:19 → EMEROOARM 13:19 → SUATTDRO 17:26 → 2NENU 18:15 → SUATTDRO 05-25 17:33 → 2ANU 05-26 22:52 → 2NENU 05-28 09:49 → ICNU 05-29 13:24
PROVIDERS: ADMIT Internal Medicine; ATTEND Internal Medicine